=== PATIENT | female | born 1975 | race Caucasian/White ===

== ENCOUNTER 2017-05-20 09:27 | Inpatient (IN) | payer OTHER ==
[~2017-05-20] VITALS: Ht 157.5 cm; Wt 79.5 kg
[~2017-05-20 09:27] MED LIST: PRENAT PO
[2017-05-20 11:21] VITALS: BP 107/61; PULSE 75; RESP 18; Ht 157.5 cm; Wt 79.5 kg
[2017-05-20] MEDS ORDERED: METHYLERGONOVINE 0.2 MG INJ IM PRN ×2 (11:30→19:00)
[2017-05-20] MEDS ORDERED: CARBOPROST 250 MCG INJ IM PRN ×2 (11:30→19:00)
[2017-05-20] MEDS ORDERED: MISOPROSTOL 200 MCG TAB PR PRN ×2 (11:30→19:00)
[2017-05-20] MEDS ORDERED: OXYTOCIN 30 UNITS/LR 500 ML IV PRN ×2 (11:30→19:00)
[2017-05-20] MEDS ORDERED: CEFAZOLIN 2 GM/50 ML (PMX) 50 ML IV SCH (11:30)
[2017-05-20] MEDS ORDERED: OXYTOCIN 30 UNITS/LR 500 ML IV SCH (11:30)
[2017-05-20] MEDS ORDERED: LACTATED RINGER'S 1,000 ML IV ONE (12:00)
[2017-05-20] MEDS ORDERED: ONDANSETRON 4 MG INJ IV ONE (12:00)
[2017-05-20] MEDS ORDERED: LACTATED RINGER'S 1,000 ML IV SCH (12:00)
[2017-05-20] MEDS ORDERED: CITRIC ACID/NA CITRATE 30 ML CUP PO ONE (12:00)
[2017-05-20 12:11] LABS: BASOPHIL # 0.1 10^3/ul (0.0-0.1); BASOPHILS % 0.5 % (0.0-2.0); EOSINOPHILS # 0.1 10^3/ul (0.0-0.5); EOSINOPHILS % 0.5 % (0.0-7.0); HEMATOCRIT 39.4 % (37.0-47.0); HEMOGLOBIN 13.4 g/dl (12.0-16.0); LYMPHOCYTES # 1.9 10^3/ul (0.8-2.9); LYMPHOCYTES % 17.5 % (15.0-51.0); MEAN CORPUSCULAR HEMOGLOBIN 31.9 pg (29.0-33.0); MEAN CORPUSCULAR VOLUME 93.8 fl (82.0-101.0); MEAN PLATELET VOLUME 11.4 fl (7.4-10.4); MONOCYTE # 0.6 10^3/ul (0.3-0.9); MONOCYTES % 5.2 % (0.0-11.0); NEUTROPHILS % 74.9 % (39.0-77.0); PLATELET COUNT 285 10^3/UL (140-415); RED CELL DISTRIBUTION WIDTH 12.9 % (11.5-14.5)
[2017-05-20 12:17] LABS: INR 0.85; PROTIME 11.6 Sec (12.2-14.2); PT RATIO 0.9
[2017-05-20 12:18] LABS: PARTIAL THROMBOPLASTIN TIME 25.4 Sec (25.0-35.0)
[2017-05-20] MEDS ORDERED: morphine SULFATE/PF (10 MG/10 ML) INJ ONE (12:59)
[2017-05-20] MEDS ORDERED: FENTAnyl 50 MCG/ML VIAL ONE (13:00)
[2017-05-20] MEDS ORDERED: METOCLOPRAMIDE 10 MG INJ ONE (13:04)
[2017-05-20] MEDS ORDERED: EPHEDrine SULFATE 50 MG/5 ML SYG ONE (13:19)
[2017-05-20] MEDS ORDERED: PHENYLephrine (100 MCG/ML) 5ML SYG ONE (13:24)
[2017-05-20] MEDS ORDERED: NALBUPHINE HCL (10 MG/1 ML) INJ IV PRN (14:00)
[2017-05-20] MEDS ORDERED: TRIMETHOBENZAMIDE 100 MG/ML VIAL IM PRN (14:00)
[2017-05-20] MEDS ORDERED: ONDANSETRON 4 MG INJ IV PRN (14:00)
[2017-05-20] MEDS ORDERED: DIPHENHYDRAMINE 50 MG INJ IV PRN (14:00)
[2017-05-20] MEDS ORDERED: HYDROmorphONE 1 MG/ML SYG IV PRN ×2 (14:00)
[2017-05-20] MEDS ORDERED: NALOXONE (0.4 MG/ML) INJ IV PRN (14:00)
--- NOTE | 2017-05-20 14:54 | OPR ---
Operative Report Planned Procedure Free Text/Dictation 41 years old EDC May 27, 2017 5 para 2 history of 2 previous section request for voluntary sterilization bilateral tubal ligation Procedure date May 20, 2017 Procedure(s) Repeat bilateral tubal ligation Performed by: YOGESH CHINO MD Assisting provider: RENAN MATA MD Anesthesiologist: MARCELA CEDENO MD Pre-procedure diagnosis Repeat for the third time bilateral tubal ligation Anesthesia Type: spinal Procedure Description Under satisfactory [spinal] anesthesia, the patient was prepped and draped and placed in a supine position, tilted to the left. Pfannenstiel incision was made , carried through the subcutaneous tissue. Bleeders brought under control with electrocautery. Fascia incised to the length of the incision. Rectus muscles from the fascia, divided midline. Peritoneum exposed, entered through a transverse incision. Exploration of abdomen revealed gravid uterus at term normal appearing tubes and ovaries extremely thinned out lower segment of the uterus bladder flap was developed. Transverse incision was made in the lower segment of the uterus. Amniotic sac ruptured. [Clear] amniotic fluid noted light baby girl was delivered from unengaged vertex. [] Nasal oropharyngeal suction was performed. The baby was handed to the team for immediate attention. The placenta was delivered manually intact. Uterine cavity was cleaned with wet sponge and drainage established. Uterus closed in 2 layers using [] Monocryl #1 in continuous fashion. Bilateral tubal ligation performed by identifying the fimbria and ampullar segment of the right fallopian tube suture material used #1 plain chromic catgut was reinforced with the same suture material that portion of the tube was excised and submitted to the pathology same procedure performed for the opposite side,. Peritoneal cavity irrigated with warm saline. Sponge, needle and instrument count reported to be correct. Abdominal peritoneum closed with [0 chromic catgut] continuously. Rectus muscle approximated with 2-0 chromic catgut []. Fascia closed with [] #1 PDs subcutaneous tissue approximated with 2-0 chromic catgut, and skin closed with NSORB. Estimated blood loss 600]mL. Urine bag contained 200 []mL of clear urine patient tolerated procedure well transferred to recovery room in good condition Post-Procedure Findings: Live Baby GIRL [id number] Specimen removed: No Complications: None Pt Condition post procedure: stable Physician Certification I, the undersigned physician, hereby certify that I have discussed the procedure described in this consent form with this patient (or the patient's legal policy services representative), including: * The risk and benefits of the procedure; * Any adverse reactions that may reasonably be expected to occur; * Any alternative efficacious methods of treatment which may be medically viable ; * The potential problems that may occur during recuperation; * Potential for blood transfusion and associated risks/benefits; and * Any research or economic interest I may have regarding this treatment. I further certify that the patient/legally responsible person was encouraged to ask question and that all questions were answered. YOGESH CHINO MD May 20, 2017 14:53
--- NOTE | 2017-05-20 16:18 | HP ---
Date/Time of Note Date/Time of Note DATE: 05/20/17 TIME: 16:13 OB - History Hx of Present Free Text/Dictation 41 years old female 5 para 2 SAB EDC of May 27, 2017 history of 2 previous request for bilateral tubal ligation admitted to [facility] to undergo repeat for the third time and bilateral tubal ligation this patient has been under the care [facility] her was not complicated with gestational diabetes -induced hypertension or any other surgical or medical conditions Estimated Due Date: May 27, 2017 : 5 Para: 2 Spontaneous : 2 Care: Good Care Ultrasounds: Abnormal US findings Obstetrical Complications: None Medical Complications: None Past Family/Social History * Past Medical, Surgical, Family and Obstetric Histories reviewed from chart. Rubella: immune RPR/VDRL: Negative GBS Status: Negative OB Admission Exam Vital Signs Vital Signs Vital Signs Date Time Temp Pulse Resp B/P Pulse Ox O2 Delivery O2 Flow Rate FiO2 05/20/17 11:21 98.5 75 18 107/61 Room Air Physical Exam HEENT: WNL Heart: Rhythm Normal Lungs: Clear, Equal Abdomen: WNL Extremities: Normal Reflexes: Normal Heart Rate: 130's Accelerations: Accelerations Present Decelerations: No Decelerations Last 72 hours Lab Results CBC & BMP 05/20/17 10:15 OB Assessment/Plan Reason for admission: other (Previous section request for tubal ligation) Plan: Other (41 years old female 5 para 2 SAB 2 EDC May history of 2 previous section requesting bilateral tubal ligation at the time of the section patient has been counseled regarding the complication of the surgery including bowel bladder injury infection hemorrhage and hematoma also the failure rate of tubal ligation increased risk of ectopic and future failure to conceive she would like to proceed with the procedure) YOGESH CHINO MD May 20, 2017 16:18
[2017-05-20 18:10] VITALS: BP 114/56; PULSE 73; RESP 18
[2017-05-20] MEDS ORDERED: CEFAZOLIN 1 GM/50 ML (PMX) 50 ML IVPB SCH (19:00)
[2017-05-20] MEDS ORDERED: OXYCODONE/ACETAMINOPHEN (5/325) TAB PO PRN ×2 (19:00)
[2017-05-20] MEDS: OXYTOCIN 30 UNITS/LR 500 ML IV SCH ×3 (19:00→23:00)
[2017-05-20] MEDS ORDERED: LANOLIN 7 GM TUBE TOP PRN (19:00)
[2017-05-20] MEDS ORDERED: HYDROCODONE/APAP (5/325) TAB PO PRN ×2 (19:00)
[2017-05-20] MEDS: KETOROLAC 30 MG INJ IV PRN (19:09)
[2017-05-20 20:00] VITALS: BP 112/56; PULSE 72; RESP 16
[2017-05-20 21:00] VITALS: BP 113/60; PULSE 70; RESP 18
[2017-05-20 22:00] VITALS: BP 112/65; PULSE 73; RESP 18
[2017-05-21] VITALS: BP 104/57; PULSE 72; RESP 16
[2017-05-21] MEDS: OXYTOCIN 30 UNITS/LR 500 ML IV SCH ×13 (00:01→22:52)
[2017-05-21 05:23] VITALS: BP 104/51; PULSE 69; RESP 20
[2017-05-21 07:55] VITALS: BP 103/60; PULSE 68; RESP 18
[2017-05-21] MEDS: SENNA/DOCUSATE NA (8.6MG/50MG) TAB PO SCH ×2 (08:45→21:24)
[2017-05-21 09:05] LABS: BASOPHILS % 0.4 % (0.0-2.0); EOSINOPHILS % 0.4 % (0.0-7.0); HEMATOCRIT 35.1 % (37.0-47.0); LYMPHOCYTES # 1.4 10^3/ul (0.8-2.9); LYMPHOCYTES % 13.6 % (15.0-51.0); MEAN CORPUSCULAR HEMOGLOBIN 32.8 pg (29.0-33.0); MEAN CORPUSCULAR HGB CONC 34.2 g/dl (32.0-37.0); MEAN CORPUSCULAR VOLUME 95.9 fl (82.0-101.0); MEAN PLATELET VOLUME 10.7 fl (7.4-10.4); MONOCYTE # 0.6 10^3/ul (0.3-0.9); MONOCYTES % 5.6 % (0.0-11.0); PLATELET COUNT 214 10^3/UL (140-415); RED BLOOD COUNT 3.66 10^6/ul (4.20-5.40); RED CELL DISTRIBUTION WIDTH 12.6 % (11.5-14.5); WHITE BLOOD COUNT 10.1 10^3/ul (4.8-10.8)
--- NOTE | 2017-05-21 09:46 | PN ---
Date/Time of Note Date/Time of Note DATE: 05/21/17 TIME: 09:42 OB Subjective Subjective Subjective May [birth year] 2070 day 1 Doing Well Afebrile Ambulatory Chest Clear Breasts are soft , Nipples are intact Abdomen is soft Fundus is firm Moderate amount of lochia Incision is clean ,No evidence of infection No calf tenderness No ankle edema Laboratory Tests Test 05/20/17 10:15 05/21/17 08:27 White Blood Count 11.010^3/ul 10.110^3/ul Red Blood Count 4.2010^6/ul 3.6610^6/ul Hemoglobin 13.4g/dl 12.0g/dl Hematocrit 39.4% 35.1% Mean Corpuscular Volume 93.8fl 95.9fl Mean Corpuscular Hemoglobin 31.9pg 32.8pg Mean Corpuscular Hemoglobin Concent 34.0g/dl 34.2g/dl Red Cell Distribution Width 12.9% 12.6% Platelet Count 71746^3/UL 10954^3/UL Mean Platelet Volume 11.4fl 10.7fl Neutrophils % 74.9% 79.0% Lymphocytes % 17.5% 13.6% Monocytes % 5.2% 5.6% Eosinophils % 0.5% 0.4% Basophils % 0.5% 0.4% Nucleated Red Blood Cells % 0.0/100WBC 0.0/100WBC Neutrophils # (Manual) 8.310^3/ul 810^3/ul Lymphocytes # 1.910^3/ul 1.410^3/ul Monocytes # 0.610^3/ul 0.610^3/ul Eosinophils # 0.110^3/ul 0.010^3/ul Basophils # 0.110^3/ul 0.010^3/ul Nucleated Red Blood Cells # 0.010^3/ul 0.010^3/ul Prothrombin Time 11.6Sec Prothrombin Time Ratio 0.9 INR International Normalized Ratio 0.85 Activated Partial Thromboplast Time 25.4Sec Rapid Plasma Reagin NONREACTIVE Hepatitis B Surface Antigen NEGATIVE Current Medications Medications (Trade) Dose Ordered Sig/[place] Route PRN Reason Start Time Stop Time Status Last Admin Dose Admin Cefazolin Sodium/ Dextrose 50 ml @ 100 mls/hr ONCE IV 05/20/17 11:30 05/20/17 18:42 DC Oxytocin/Lactated Ringer's 500 ml @ 125 mls/hr ONCE IV 05/20/17 11:30 05/20/17 18:42 DC 05/20/17 15:02 Oxytocin/Lactated Ringer's 500 ml @ 0 mls/hr ONCE PRN IV For Hemorrhage Management 05/20/17 11:30 05/20/17 18:42 DC Methylergonovine Maleate (Methergine) 0.2 mg ONCE PRN IM VAGINAL BLEEDING 05/20/17 11:30 05/20/17 18:43 DC Carboprost Tromethamine (Hemabate) 250 mcg ONCE PRN IM VAGINAL BLEEDING 05/20/17 11:30 05/20/17 18:43 DC Misoprostol 1000 mcg 1,000 mcg ONCE PRN RI VAGINAL BLEEDING 05/20/17 11:30 05/20/17 18:43 DC Lactated Ringer's 1,000 ml @ 125 mls/hr Q8H IV 05/20/17 12:00 05/20/17 18:43 DC Lactated Ringer's (Lr) 1,000 ml @ 1,000 mls/hr Q1H ONCE IV 05/20/17 12:00 05/20/17 12:59 DC 05/20/17 12:50 Ondansetron HCl (Zofran Inj) 4 mg pre-procedure ONCE IV 05/20/17 12:00 05/20/17 12:02 DC 05/20/17 12:52 Citric Acid/ Sodium Citrate (Bicitra) 30 ml PRE-OP ONCE PO 05/20/17 12:00 05/20/17 12:02 DC 05/20/17 12:52 Morphine Sulfate (Duramorph) 10 mg STK-MED ONCE .ROUTE 05/20/17 12:59 05/20/17 13:00 DC Fentanyl (Sublimaze) 100 mcg STK-MED ONCE .ROUTE 05/20/17 13:00 05/20/17 13:01 DC Metoclopramide HCl (Reglan) 10 mg STK-MED ONCE .ROUTE 05/20/17 13:04 05/20/17 13:05 DC Ephedrine Sulfate 50 mg STK-MED ONCE .ROUTE 05/20/17 13:19 05/20/17 13:20 DC Phenylephrine HCl (Pavan-Synephrine Inj Syg) 500 mcg STK-MED ONCE .ROUTE 05/20/17 13:24 05/20/17 13:25 DC Naloxone HCl (Narcan) 0.1 mg Q2M PRN IV FOR RESP RATE 8 OR LESS 05/20/17 14:00 05/21/17 13:59 Ketorolac Tromethamine (Toradol) 30 mg Q6H PRN IV PAIN 05/20/17 14:00 05/21/17 13:59 05/20/17 19:09 Hydromorphone HCl (Dilaudid) 0.2 mg Q3H PRN IV PAIN LEVEL 1-5 05/20/17 14:00 05/21/17 13:59 Hydromorphone HCl (Dilaudid) 0.4 mg Q3H PRN IV PAIN LEVEL 6-10 05/20/17 14:00 05/21/17 13:59 Diphenhydramine HCl (Benadryl) 25 mg Q6H PRN IV ITCHING 05/20/17 14:00 05/21/17 13:59 Nalbuphine HCl (Nubain) 5 mg ONCE PRN IV ITCHING 05/20/17 14:00 05/21/17 13:59 Ondansetron HCl (Zofran Inj) 4 mg Q6H PRN IV NAUSEA AND/OR VOMITING 05/20/17 14:00 05/21/17 13:59 Trimethobenzamide HCl (Tigan) 200 mg Q6H PRN IM NAUSEA AND/OR VOMITING 05/20/17 14:00 05/21/17 13:59 Miscellaneous Information (* Miscellaneous Pharmacy Order) Duramorph: 0.2 mg Spi... GIVEN XX 05/20/17 14:00 05/20/17 18:43 DC Acetaminophen/ Hydrocodone Bitart ([place] (5/325)) 1 tab Q4H PRN PO PAIN LEVEL 4-6 05/20/17 19:00 Acetaminophen/ Hydrocodone Bitart ([place] (5/325)) 2 tab Q4H PRN PO PAIN LEVEL 7-10 05/20/17 19:00 Oxycodone/ Acetaminophen (Percocet (5/ 325)) 1 tab Q4H PRN PO PAIN LEVEL 4-6 05/20/17 19:00 Oxycodone/ Acetaminophen (Percocet (5/ 325)) 2 tab Q4H PRN PO PAIN LEVEL 7-10 05/20/17 19:00 Ibuprofen (Motrin) 600 mg Q6 PO 05/21/17 12:00 Simethicone (Mylicon) 160 mg Q8H PRN PO DISTENSION/GAS/BLOATING 05/20/17 19:00 Senna/Docusate Sodium (Senokot-S) 1 tab BID PO 05/21/17 09:00 05/21/17 08:45 Lanolin (Bjt-J-Omamfv) 1 applic BEDSIDE MEDICATION PRN TOP BEDSIDE FOR BHAVNA TO NIPPLES 05/20/17 19:00 Diphtheria/ Tetanus/Acell Pertussis 0.5 ml 0.5 ml ONCE ONCE IM* 05/23/17 09:00 05/23/17 09:01 Oxytocin/Lactated Ringer's 500 ml @ 0 mls/hr ONCE PRN IV For Hemorrhage Management 05/20/17 19:00 Methylergonovine Maleate (Methergine) 0.2 mg ONCE PRN IM VAGINAL BLEEDING 05/20/17 19:00 Carboprost Tromethamine (Hemabate) 250 mcg ONCE PRN IM VAGINAL BLEEDING 05/20/17 19:00 Misoprostol 1000 mcg 1,000 mcg ONCE PRN RI VAGINAL BLEEDING 05/20/17 19:00 Cefazolin Sodium 50 ml @ 100 mls/hr ONCE IVPB 05/20/17 19:00 05/20/17 19:29 DC 05/20/17 22:51 Oxytocin/Lactated Ringer's 500 ml @ 125 mls/hr Q4H IV 05/20/17 18:34 05/21/17 00:01 Oxytocin/Lactated Ringer's 500 ml @ 125 mls/hr Q4H IV 05/20/17 19:00 05/21/17 04:27 New born is doing well, Breast feeding ANNA AMANDA MD May 21, 2017 09:46
[2017-05-21 12:00] VITALS: BP 103/53; PULSE 82; RESP 18
[2017-05-21] MEDS: KETOROLAC 30 MG INJ IV PRN (12:02)
[2017-05-21 15:47] VITALS: BP 103/53; PULSE 78; RESP 18
[2017-05-21] MEDS: IBUPROFEN 600 MG TAB PO SCH ×2 (17:37→17:38)
[2017-05-21 20:00] VITALS: BP 108/69; PULSE 69; RESP 20
[2017-05-22] MEDS: IBUPROFEN 600 MG TAB PO SCH ×5 (00:35→23:30)
[2017-05-22] MEDS: OXYTOCIN 30 UNITS/LR 500 ML IV SCH ×6 (02:26→15:00)
[2017-05-22 03:56] VITALS: BP 95/52; PULSE 73; RESP 18
[2017-05-22 08:45] VITALS: BP 111/70; PULSE 84; RESP 18
--- NOTE | 2017-05-22 09:23 | PN ---
Date/Time of Note Date/Time of Note DATE: 05/22/17 TIME: 09:20 OB Subjective Subjective Subjective Post day 2 Afebrile Vital signs are stable Abdomen soft incision dry good bowel sounds, able to pass flatus, no bowel movement enema recommended Extremities normal Ambulation encouraged YOGESH CHINO MD May 22, 2017 09:23
[2017-05-22] MEDS ORDERED: NA PHOSPHATE/BIPHOS 133 ML ENEMA PR ONE ×2 (09:30→15:00)
[2017-05-22] MEDS: SENNA/DOCUSATE NA (8.6MG/50MG) TAB PO SCH ×2 (12:40→23:30)
[2017-05-22 16:59] VITALS: BP 115/55; PULSE 71; RESP 18
[2017-05-22 20:00] VITALS: BP 110/61; PULSE 75; RESP 20
[2017-05-23 03:58] VITALS: BP 101/58; PULSE 74; RESP 20
[2017-05-23] MEDS: IBUPROFEN 600 MG TAB PO SCH ×2 (05:36→12:08)
[2017-05-23 08:00] VITALS: BP 102/69; PULSE 101; RESP 18
[2017-05-23] MEDS ORDERED: DIPHTH/TET/ACEL PERTUSS (ADULT) 0.5 ML VIAL IM* ONE (09:00)
[2017-05-23] MEDS: SENNA/DOCUSATE NA (8.6MG/50MG) TAB PO SCH (09:31)
--- NOTE | 2017-05-23 12:41 | PD.PPDC ---
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
--- NOTE | 2017-05-23 12:45 | DS ---
Date/Time of Note Date/Time of Note DATE: 05/23/17 TIME: 12:43 Discharge Summary Admission/Discharge Info Admit Date/Time May 20, 2017 at 09:27 Discharge Date/Time May 23, 2017 at 1230 Discharge Diagnosis Post BTL day 3 Patient Condition: Good Procedures Repeat and BTL Hx of Present Illness Term history of previous request for bilateral tubal ligation Hospital Course Satisfactory recovery uneventful Home Meds Reported Medications Multivit/Min/Fol Ac/Iron/Pren* ( S*) 1 Tab Tab, 1 TAB PO DAILY, TAB 11/17/15 Follow-up Plan Post instructions given recommended appointment in 1 week for post op check Primary Care Provider Care Physician No Primary Time spent on discharge: < 30 minutes YOGESH CHINO MD May 23, 2017 12:45
== END 2017-05-23 15:41 | disposition home or self-care (01) | DRG 766 ==
LOC: L-D 09:27 → PP1 18:12
PROVIDERS: ADMIT Obstetrics & Gynecology; ATTEND Obstetrics & Gynecology
PROC: 0UL70ZZ Occlusion of Bilateral Fallopian Tubes, Open Approach (ICD-10-PCS; 2017-05-20)
PROC: 3E033VJ Introduction of Other Hormone into Peripheral Vein, Percutaneous Approach (ICD-10-PCS; 2017-05-20)
PROC: 10D00Z1 Extraction of Products of Conception, Low, Open Approach (ICD-10-PCS; principal; 2017-05-20 12:30)
DX: O34.211 Maternal care for low transverse scar from previous cesarean delivery (principal); Z30.2 Encounter for sterilization; Z37.0 Single live birth; Z3A.39 39 weeks gestation of pregnancy
CPT/HCPCS: 85025; 85610; 85730; 86592; 86850; 86900; 86901; 87340; 90715; 99464; J0690; J1885; J2274; J2370; J2405; J2590; J2765; J3010; J7120